=== PATIENT | male | born 1980 | race African-American/Black ===

== ENCOUNTER 2023-01-25 17:21 | Emergency (ER) | payer SELFPAY ==
[~2023-01-25] VITALS: Ht 170.2 cm; Wt 101.0 kg
[2023-01-25 17:29] VITALS: BP 115/77
== END 2023-01-25 21:00 | disposition left against medical advice (07) ==
LOC: ER 17:21
DX: Z53.21 Procedure and treatment not carried out due to patient leaving prior to being seen by health care provider (principal)
CPT/HCPCS: 99281